=== PATIENT | male | born 1960 | race Caucasian/White ===

== ENCOUNTER 2017-07-31 09:00 | Day surgery (SDC) | payer OTHER ==
[2017-07-27 14:27] LABS: Urine RBC None Seen /hpf (0 - 3)
[2017-07-27 14:38] LABS: Urine Bilirubin Negative (Negative); Urine Blood Negative /uL (Negative); Urine Color Yellow (Yellow); Urine Glucose Normal (Normal); Urine Ketone Negative (Negative); Urine Nitrite Negative (Negative); Urine Urobilinogen Normal (Negative); Urine pH 6.5 (5.0-8.0)
[2017-07-27 14:41] LABS: Basophils # (auto) 0.1 uL; Eosinophils # (auto) 0.2 uL; Eosinophils % (auto) 1.9 % (0.0-7.0); Hematocrit 47.4 % (41.0-53.0); Hemoglobin 16.4 g/dL (13.5-17.5); Lymphocytes % (auto) 21.6 % (10.0-50.0); Mean Corpuscular Hemoglobin 29.4 pg (28.0-32.0); Mean Corpuscular Hgb Conc. 34.5 g/dL (32.0-36.0); Mean Corpuscular Volume 85.4 fL (80.0-100.0); Mean Platelet Volume 8.3 fL (6.9-10.8); Monocytes # (auto) 0.7 uL; Neutrophils # (auto) 6.5 uL; Neutrophils % (auto) 68.5 % (37.0-80.0); Nucleated Red Blood Cells % 0.1 %; Platelet Count (auto) 244 10^3/uL (140-450); Red Cell Distribution Width 13.1 % (11.8-14.3); White Blood Cell 9.4 10^3/uL (4.4-10.8)
[2017-07-27 14:57] LABS: Albumin 4.3 g/dL (3.4-5.0); Bilirubin, Total 1.3 mg/dL (0.2-1.0); Calcium 9.7 mg/dL (8.5-10.1); Total Protein 8.5 g/dL (6.4-8.2)
[2017-07-27 15:19] LABS: INR 0.93 (0.9-1.15); Partial Thromboplastin Time 31.8 sec (22.64-33.71); Prothrombin Time 10.1 sec (9.37-12.3)
[~2017-07-31] VITALS: Ht 182.9 cm; Wt 102.1 kg
[~2017-07-31 09:00] MED LIST: HYDR-4683 PO; HYDROmorphone HCL 2 MG/ML VL ONE; INDO25CA14 PO; LANS15CA21 PO; LISI10TA6 PO; MIDAZOLAM HCL 1MG/1ML-2 ML VIAL ONE; ONDANSETRON HCL 4 MG/2 ML VIAL ONE; PROPOFOL 10 MG/ML 20 ML IV ONE; ROCURONIUM 10MG/ML 10ML VIAL IV ONE; TRAZ50TA2 PO; fentaNYL CITRATE 100 MCG/2 ML VL ONE
[2017-07-31] MEDS ORDERED: ceFAZolin 1GM/50ML 50 ML IV ONE ×2 (09:05→11:03)
[2017-07-31] MEDS ORDERED: BUPIVACAINE W/ EPINEPH 0.25% INJ 50ML MDV ONE (10:46)
[2017-07-31] MEDS ORDERED: SUCCINYLCHOLINE CHLORIDE 20 MG/ML 10ML VIAL IV ONE (11:19)
[2017-07-31] MEDS ORDERED: PROPOFOL 10 MG/ML 20 ML IV ONE (12:34)
[2017-07-31] MEDS: HYDROmorphone HCL 2 MG/ML VL IV PRN (13:29)
[2017-07-31] MEDS: METOCLOPRAMIDE HCL 5MG/ml INJ 2ml VIAL IV ONE (13:29)
[2017-07-31] MEDS: KETOROLAC TROMETH 30 MG/ML 1ML VIAL IV ONE (13:59)
[2017-07-31 14:19] VITALS: BP 141/93
== END 2017-07-31 14:28 | disposition home or self-care (01) ==
LOC: SUR 09:00
PROVIDERS: ATTEND Orthopaedic Surgery
DX: S46.011A Strain of muscle(s) and tendon(s) of the rotator cuff of right shoulder, initial encounter (principal); M75.41 Impingement syndrome of right shoulder; M12.511 Traumatic arthropathy, right shoulder; M79.9 Soft tissue disorder, unspecified; X58.XXXA Exposure to other specified factors, initial encounter; Y93.89 Activity, other specified; Y92.89 Other specified places as the place of occurrence of the external cause; Y99.8 Other external cause status; D69.6 Thrombocytopenia, unspecified; F10.99 Alcohol use, unspecified with unspecified alcohol-induced disorder; Z87.891 Personal history of nicotine dependence
CPT/HCPCS: 36415; 80053; 81001; 85025; 85610; 85730; J0330; J0690; J1885; J2250; J2405; J2704